=== PATIENT | female | born 1995 | race African-American/Black ===

== ENCOUNTER 2020-04-04 10:45 | Emergency (ER) | payer BC ==
--- NOTE | 2020-04-04 12:11 | ER Document Report ---
ED Medical Screen (RME) - General Chief Complaint: Chest Pain Stated Complaint: CHEST PAIN - HPI Notes: 04/04/20 12:10 24-year-old female to emergency department with complaints of left-sided and midsternal chest pain that has been going on for about 1 week. Seems to get a bit little bit worse at night. She states that last night she also noticed tingling into her left arm. Denies any shortness of breath, nausea, vomiting, diaphoresis. She does admit to a little bit of lower abdominal pain as well with this. Denies any diarrhea. She states that she does take control. She has been on this for about 1 year. She denies any leg swelling or leg pain. She denies any history of diabetes, hypertension, hyperlipidemia. She is a non-smoker. There is no family history for coronary artery disease. She never had a clot in her leg. Pain is not worsened with big deep breath or movement. States it sometimes gets a little worse after eating. I performed a brief medical screening exam on the patient determined that the patient needs further evaluation and management by main side provider. I have placed initial orders to help expedite care. - Related Data Allergies/Adverse Reactions: No Known Allergies Allergy (Unverified 04/04/20 11:58) Home Medications: control pills (she cannot remember name) Past Medical History - Social History Chew tobacco use (# tins/day): No Frequency of alcohol use: None Drug Abuse: None Physical Exam - Vital signs Vitals: Temp Pulse Resp BP Pulse Ox 98.4 F 80 18 120/78 99 04/04/20 11:01 04/04/20 11:01 04/04/20 11:01 04/04/20 11:01 04/04/20 11:01 Course - Vital Signs Vital signs: Temp Pulse Resp BP Pulse Ox 98.4 F 80 18 120/78 99 04/04/20 11:01 04/04/20 11:01 04/04/20 11:01 04/04/20 11:01 04/04/20 11:01
[2020-04-04 12:41] LABS: ABSOLUTE BASOPHILS # (AUTO) 0.1 10^3/uL (0.0-0.2); ABSOLUTE LYMPHOCYTES (AUTO) 3.1 10^3/uL (0.5-4.7); ABSOLUTE MONOCYTES (AUTO) 0.4 10^3/uL (0.1-1.4); ABSOLUTE NEUT (AUTO) 2.4 10^3/uL (1.7-8.2); BASOPHILS % (AUTO) 1.5 % (0-2); EOSINOPHILS % (AUTO) 0.3 % (0-6); HEMATOCRIT 39.4 % (36.0-47.0); LYMPHOCYTES % (AUTO) 51.8 % (13-45); MEAN CORPUSCULAR HEMOGLOBIN 26.9 pg (27.0-33.4); MEAN CORPUSCULAR VOLUME 82 fl (80-97); MONOCYTES % (AUTO) 6.1 % (3-13); PLATELET COUNT 288 10^3/uL (150-450); RED BLOOD COUNT 4.83 10^6/uL (3.72-5.28); RED CELL DISTRIBUTION WIDTH 14.2 % (11.5-14.0); SEGMENTED NEUTROPHILS % (AUTO) 40.3 % (42-78); TOTAL CELLS COUNTED % (AUTO) 100 %
[2020-04-04 12:45] LABS: APPEARANCE,URINE SLIGHTLY-CLOUDY; BILIRUBIN,URINE NEGATIVE (NEGATIVE); COLOR,URINE YELLOW; GLUCOSE, URINE NEGATIVE (NEGATIVE); KETONES,URINE NEGATIVE (NEGATIVE); LEUKOCYTE ESTERASE,URINE NEGATIVE (NEGATIVE); NITRITE,URINE NEGATIVE (NEGATIVE); PROTEIN,URINE NEGATIVE (NEGATIVE); URINE SPECIFIC GRAVITY 1.025; UROBILINOGEN,URINE NEGATIVE mg/dL (<2.0)
--- NOTE | 2020-04-04 12:46 | RADIOLOGY REPORT (SQ) ---
EXAM DESCRIPTION: CHEST 2 VIEWS IMAGES COMPLETED DATE/TIME: 04/04/2020 12:21 pm REASON FOR STUDY: chest pain COMPARISON: None. EXAM PARAMETERS: NUMBER OF VIEWS: two views TECHNIQUE: Digital Frontal and Lateral radiographic views of the chest acquired. RADIATION DOSE: NA LIMITATIONS: none FINDINGS: LUNGS AND PLEURA: No opacities, masses or pneumothorax. No pleural effusion. MEDIASTINUM AND HILAR STRUCTURES: No masses or contour abnormalities. HEART AND VASCULAR STRUCTURES: Heart normal size. No evidence for failure. BONES: No acute findings. HARDWARE: None in the chest. OTHER: No other significant finding. IMPRESSION: NO ACUTE RADIOGRAPHIC FINDING IN THE CHEST. TECHNICAL DOCUMENTATION: JOB ID: [id number] 2010 [employer]- All Rights Reserved Reading location - IP/workstation name: [email or web address]
[2020-04-04 13:05] LABS: ALBUMIN 4.7 g/dL (3.5-5.0); ALKALINE PHOSPHATASE 46 U/L (38-126); ANION GAP 11 (5-19); ASPARTATE AMINO TRANSFERASE 21 U/L (14-36); BILIRUBIN,DIRECT 0.2 mg/dL (0.0-0.4); BILIRUBIN,TOTAL 0.9 mg/dL (0.2-1.3); BLOOD UREA NITROGEN 8 mg/dL (7-20); CARBON DIOXIDE 25 mmol/L (22-30); CHLORIDE 103 mmol/L (98-107); GLUCOSE 88 mg/dL (75-110); POTASSIUM 3.9 mmol/L (3.6-5.0); TOTAL PROTEIN 7.6 g/dL (6.3-8.2)
[2020-04-04] MEDS ORDERED: BUTALB/ACETAMINOPHEN/CAFFEINE 1 TAB EACH PO ONE (13:15)
--- NOTE | 2020-04-04 13:21 | ER Document Report ---
ED Cardiac - General Chief Complaint: Chest Pain Stated Complaint: CHEST PAIN Time Seen by Provider: 04/04/20 13:01 Mode of Arrival: Ambulatory Information source: Patient - HPI Notes: Patient presents with left-sided chest pain. She states it started yesterday. It is gradually improving. It is located above her left breast anteriorly. It did radiate into the arm. She states her arm felt tingly yesterday. Currently she states she has a right frontal headache that is worse than her chest pain. Nothing makes it better or worse. She denies any nausea or vomiting. She denies any cough cold or congestion. She has had no shortness of breath. She has had no sweating. She denies any family history. Patient takes control pills but does not smoke. She denies any long plane rides or car trips. She denies any daily medications. - Related Data Allergies/Adverse Reactions: No Known Allergies Allergy (Unverified 04/04/20 11:58) Home Medications: control pills (she cannot remember name) Past Medical History - General Information source: Patient - Social History Smoking Status: Never Smoker Chew tobacco use (# tins/day): No Frequency of alcohol use: None Drug Abuse: None Family History: denies: CAD Patient has homicidal ideation: No Review of Systems - Review of Systems Constitutional: denies: Chills, Fever Cardiovascular: Chest pain. denies: Palpitations Respiratory: denies: Cough, Short of breath -: Yes All other systems reviewed and negative Physical Exam - Vital signs Vitals: Temp Pulse Resp BP Pulse Ox 98.4 F 80 18 120/78 99 04/04/20 11:01 04/04/20 11:01 04/04/20 11:01 04/04/20 11:01 04/04/20 11:01 Interpretation: Normal - General General appearance: Appears well, Alert - HEENT Head: Normocephalic, Atraumatic Eyes: Normal Pupils: PERRL - Respiratory Respiratory status: No respiratory distress Chest status: Nontender Breath sounds: Normal Chest palpation: Normal - Cardiovascular Rhythm: Regular Heart sounds: Normal auscultation Murmur: No - Abdominal Inspection: Normal Distension: No distension Bowel sounds: Normal Tenderness: Nontender Organomegaly: No organomegaly - Back Back: Normal, Nontender - Extremities General upper extremity: Normal inspection, Nontender, Normal color, Normal ROM, Normal temperature General lower extremity: Normal inspection, Nontender, Normal color, Normal ROM, Normal temperature, Normal weight bearing. No: Jameel's sign - Neurological Neuro grossly intact: Yes Cognition: Normal Orientation: AAOx4 Radha Coma Scale Eye Opening: Spontaneous Radha Coma Scale Verbal: Oriented Radha Coma Scale Motor: Obeys Commands [place] Coma Scale Total: 15 Speech: Normal Motor strength normal: LUE, RUE, LLE, RLE Sensory: Normal - Psychological Associated symptoms: Normal affect, Normal mood - Skin Skin Temperature: Warm Skin Moisture: Dry Skin Color: Normal Course - Re-evaluation Re-evalutation: 04/04/20 13:19 Patient presented with chest pain. She has unremarkable chest x-ray as well as EKG. Unremarkable vital signs. Unremarkable exam. I think this is most likely some chest wall pain and a migraine. - Vital Signs Vital signs: Temp Pulse Resp BP Pulse Ox 98.4 F 80 18 120/78 99 04/04/20 11:01 04/04/20 11:01 04/04/20 11:01 04/04/20 11:01 04/04/20 11:01 - Laboratory Result Diagrams: 04/04/20 12:30 04/04/20 12:30 Laboratory results interpreted by me: 04/04/20 12:30 MCH 26.9 L RDW 14.2 H Lymph % (Auto) 51.8 H Seg Neutrophils % 40.3 L - Diagnostic Test Radiology reviewed: Image reviewed, Reports reviewed - EKG Interpretation by Nv EKG shows normal: Sinus rhythm Rate: Normal - 70 Rhythm: NSR Oaks/QRS: No: Right axis deviation, Left axis deviation Discharge - Discharge Clinical Impression: Chest wall pain Headache Qualifiers: Headache type: unspecified Headache chronicity pattern: acute headache Intractability: intractable Qualified Code(s): R51.9 - Headache, unspecified Condition: Stable Disposition: HOME, SELF-CARE Instructions: Chest Wall Pain ([facility]), Headache ([facility]) Prescriptions: Butalb/Acetaminophen/Caffeine [Fioricet (50-325-40 mg) Tablet] 1 tab PO Q4H PRN 3 Days #12 tab PRN Reason: Forms: Return to Work Referrals: [facility] [place] [Provider Group] - Follow up in 1 week
[2020-04-04 13:29] VITALS: BP 131/94
--- NOTE | 2020-04-04 18:55 | EKG REPORT ---
SEVERITY:- NORMAL ECG - SINUS RHYTHM : Confirmed by: Hector Walton MD 04-Apr-2020 18:55:16
== END 2020-04-04 13:40 | disposition home or self-care (01) ==
LOC: ER 10:45
DX: R07.89 Other chest pain (principal); R51.9 Headache, unspecified; Z79.3 Long term (current) use of hormonal contraceptives
CPT/HCPCS: 93005; 99285; 36415; 85025; 81025; 80053; 81001; 84484; 71046; 93010; J3490